=== PATIENT | male | born 1995 | race African-American/Black ===

== ENCOUNTER 2017-03-15 15:14 | Emergency (ER) | payer SELFPAY ==
[~2017-03-15] VITALS: Ht 177.8 cm; Wt 92.4 kg
[2017-03-15] MEDS ORDERED: PERCOCET 5/31 TABLET PO (16:39)
[2017-03-15] MEDS ORDERED: MOTRIN800 MG PO (16:39)
[2017-03-15] MEDS ORDERED: KEFLEX500 MG PO (16:39)
[2017-03-15 17:12] VITALS: BP 111/71
== END 2017-03-15 17:15 | disposition home or self-care (01) ==
LOC: EME 15:14
DX: L05.91 Pilonidal cyst without abscess (principal)
CPT/HCPCS: 99281; 99283